=== PATIENT | female | born 2000 | race Caucasian/White ===

== ENCOUNTER 2020-08-05 10:55 | Inpatient (IN) | payer MEDICAID ==
[~2020-08-05] VITALS: Ht 165.1 cm; Wt 89.0 kg
[2020-08-05] MEDS ORDERED: methylPREDNISolone sod succ 125mg/2ml vial IV ONE (11:00)
[2020-08-05] MEDS ORDERED: normal saline 1000ML IV soln IVB ONE (11:00)
[2020-08-05] MEDS ORDERED: albuterol 2.5 MG/3 ML nebule CONTNEB PRN (11:00)
[2020-08-05] MEDS ORDERED: LORazepam 2 mg/ml vial IV ONE (11:00)
--- NOTE | 2020-08-05 11:06 | NUR ---
pt is alert oiented x4 at this time ,mother at bedside ,rt at bedside ,matt [address] superintendent completed the ekg.hr 158,spo2 91 reciveing neb tx.sbar to ena primary nurse.
[2020-08-05] MEDS ORDERED: methylPREDNISolone sod succ 125mg/2ml vial ONE (11:08)
--- NOTE | 2020-08-05 11:08 | NUR ---
Sammie ibrahim in [facility] - 08/05/20 at 1109 by PEYTON [id number]
[2020-08-05] MEDS ORDERED: magnesium 4gm in 100ml NS 100 ML IV ONE (11:10)
[2020-08-05 11:11] LABS: BASOPHILS # (AUTO) 0.1 X10'3 (0-0.2); BASOPHILS % (AUTO) 0.4 % (0-1); EOSINOPHILS # (AUTO) 0.1 X10'3 (0-0.9); EOSINOPHILS % (AUTO) 0.5 % (0-6); HEMOGLOBIN 12.5 g/dl (12.0-16.0); LYMPHOCYTES # (AUTO) 6.5 X10'3 (1.1-4.8); LYMPHOCYTES % (AUTO) 36.4 % (21-51); MEAN CORPUSCULAR HEMOGLOBIN 26.1 PG (27.0-31.0); MEAN CORPUSCULAR HGB CONC 31.3 g/dL (33.0-36.5); MEAN CORPUSCULAR VOLUME 83.4 FL (78-98); MEAN PLATELET VOLUME 8.4 FL (7.4-10.4); MONOCYTES # (AUTO) 1.6 X10'3 (0-0.9); MONOCYTES % (AUTO) 8.9 % (2-12); NEUTROPHILS # (AUTO) 9.5 X10'3 (1.8-7.7); NEUTROPHILS % (AUTO) 53.8 % (42-75); PLATELET COUNT 416 X10'3 (140-440); RED CELL DISTRIBUTION WIDTH 17.7 % (11.5-14.5); WHITE BLOOD COUNT 17.7 X10'3 (4.5-11.0)
[2020-08-05 11:23] LABS: ABG BASE EXCESS -10.2 mmol/L (-2.0-2.0); ABG HCO3 16.9 mmol/L (22.0-26.0); ABG OXYGEN SATURATION 91.1 % (94-97); ABG PCO2 (T) 41.9 mmHg (32.0-45.0); ABG PO2 (T) 71.7 mmHg (75.0-100.0); ALLEN'S TEST POSITIVE; FCOHb 0.3 % (0.0-3.9); FLOW 8 L/min; FMetHb 0.4 % (0.0-1.5); FO2Hb 90.5 % (94-97); TOTAL HEMOGLOBIN 12.7 G/dl (12.0-16.0)
[2020-08-05 11:26] LABS: ALANINE AMINOTRANSFERASE 35 U/L (12-78); ALBUMIN 3.7 G/DL (3.4-5.0); ALBUMIN/GLOBULIN RATIO 0.9 (1.1-1.5); ALKALINE PHOSPHATASE 39 IU/L (20-180); ANION GAP 18 (8-16); ASPARTATE AMINO TRANSFERASE 20 U/L (10-37); BILIRUBIN,TOTAL 0.2 MG/DL (0.1-1.0); BLOOD UREA NITROGEN 11 MG/DL (7-18); BUN/CREATININE RATIO 8.9 (6.6-38.0); CALCIUM 8.8 MG/DL (8.5-10.1); CHLORIDE 103 MMOL/L (99-107); CREATININE 1.23 MG/DL (0.40-0.90); GLUCOSE 246 MG/DL (70-104); POTASSIUM 3.9 MMOL/L (3.5-5.1); SODIUM 141 MMOL/L (135-145); TOTAL CARBON DIOXIDE 20.3 MMOL/L (24-32); TOTAL PROTEIN 7.6 G/DL (6.4-8.2); eGFR 56 ML/MIN
[2020-08-05] MEDS ORDERED: magnesium hydroxide 30ml (MOM) UD suspension PO PRN (13:15)
[2020-08-05] MEDS ORDERED: ondansetron/PF 4mg/2ml inj IV PRN (13:15)
[2020-08-05] MEDS ORDERED: morphine 2 MG/ML inj. syringe IV PRN ×2 (13:15)
[2020-08-05] MEDS ORDERED: mag hydrox/Alum hydrox/simeth 30ml oral suspension PO PRN (13:15)
[2020-08-05] MEDS ORDERED: acetaminophen 325mg tablet PO PRN ×2 (13:15)
--- NOTE | 2020-08-05 13:20 | NUR ---
pt states she is unable to urinate at this time, gave two cups of water.
[2020-08-05] MEDS ORDERED: NO HOME MEDS (13:39)
--- NOTE | 2020-08-05 13:45 | NUR ---
Patient in room PCU 3022. I have received report from Prince and had the opportunity to ask questions and assume patient care.
[2020-08-05] MEDS: methylPREDNISolone sod succ 125mg/2ml vial IV SCH ×2 (14:00→19:54)
--- NOTE | 2020-08-05 14:41 | NUR ---
called ER for report, no answer.
[2020-08-05] MEDS ORDERED: ipratropium/albuterol 3ml nebule NEB PRN (15:45)
--- NOTE | 2020-08-05 16:47 | NUR ---
PAGER ID: [phone] MESSAGE: Patient Adelina Barrios Rm 3025 has resting HR of 120-130's and goes to the 160's with activity. Please advise Arabella ext [phone]
[2020-08-05 18:00] VITALS: BP 113/42
--- NOTE | 2020-08-05 18:28 | NUR ---
Problems reprioritized. Patient report given, questions answered & plan of care reviewed with Becca GALAN.
--- NOTE | 2020-08-05 18:42 | NUR ---
Patient in room PCU 3022. I have received report from Arabella GALAN and had the opportunity to ask questions and assume patient care. Rounded together and introduced self and discussed plan of care for the evening. Patient sad she did not get dinner or cake this evening.
[2020-08-05] MEDS: ipratropium/albuterol 3ml nebule NEB SCH ×2 (19:20→23:11)
[2020-08-05 20:34] LABS: URINE HCG NEGATIVE (NEG)
[2020-08-05 20:35] LABS: CLARITY,URINE SLIGHTLY CLOUDY (Clear); COLOR,URINE YELLOW (Yellow); GLUCOSE, URINE NEGATIVE (Neg); KETONES,URINE NEGATIVE (Neg); LEUKOCYTE ESTERASE ,URINE NEGATIVE (Neg); NITRITES, URINE NEGATIVE (Neg); OCCULT BLOOD,URINE NEGATIVE (Neg); PROTEIN,URINE 100 mg/dl (Neg); UROBILINOGEN,URINE 0.2 E.U/dL (0.2-1.0)
[2020-08-05 21:02] LABS: UA COLLECTION TYPE CLN CATCH MIDSTREAM
[2020-08-05 21:04] LABS: BACTERIA,URINE FEW /HPF (Neg); RBC,URINE NONE SEEN /HPF (0-2); SQUAMOUS EPITHELIAL CELL,UR MODERATE /LPF (FEW); WBC,URINE 0-4 /HPF (0-4)
[2020-08-05 21:05] LABS: HYALINE CASTS 0-3 /LPF (NEGATIVE); MUCUS STRANDS MODERATE /LPF (Neg)
[2020-08-05 22:00] VITALS: BP 102/44
[2020-08-06] MEDS: methylPREDNISolone sod succ 125mg/2ml vial IV SCH ×2 (01:53→08:56)
[2020-08-06 02:00] VITALS: BP 123/50
[2020-08-06] MEDS: ipratropium/albuterol 3ml nebule NEB SCH ×2 (02:29→07:31)
--- NOTE | 2020-08-06 04:33 | NUR ---
Patient rested comfortably during the night either playing electronics or sleeping.
--- NOTE | 2020-08-06 06:15 | NUR ---
Patient in room PCU 3022. I have received report from Becca GALAN and had the opportunity to ask questions and assume patient care.
--- NOTE | 2020-08-06 06:32 | NUR ---
Problems reprioritized. Patient report given, questions answered & plan of care reviewed with Tiffany GALAN.
[2020-08-06 07:00] VITALS: BP 102/44
--- NOTE | 2020-08-06 08:01 | NUR ---
Pt refusing lab draws: notified. Dr. Lawrence notified via page. "RE: Adelina Barrios RM [id number]. Pt refusing any and all lab draws despite multiple tries/encouragement from multiple staff. -Tiffany #[id number]"
--- NOTE | 2020-08-06 08:01 | NUR ---
Patient in room PCU 3022. I have received report from ADAMA Allen and had the opportunity to ask questions and assume patient care.
[2020-08-06] MEDS ORDERED: PRED10TA23 PO (09:26)
--- NOTE | 2020-08-06 10:30 | NUR ---
Pt stable for discharge per MD orders. All discharge instructions reviewed with pt and her father; all questions answered. Follow up appointment will be made by the patient with her provider Becca Quan and Melchor uriostegui. New Rx e-scripted to [facility] on [facility] in [place]. PIV x2 discontinued, cannulas intact. cell assembly pinner discontinued. Belongings collected, including pt's [employer] switch console, controller, cell phone and two wall chargers and pt's purse, wallet and sunglasses, and sent with pt. Pt ambulated to the [facility] with this nurse and her father, where she left in a private vehicle headed home. pt walked and talked without any sign of respiratory distress or wheezing.
== END 2020-08-06 10:51 | disposition home or self-care (01) | DRG 133 ==
LOC: ER 10:55 → EDBD 10:55 → ED HOLD 13:12 → PCU 3S 14:57
PROVIDERS: ADMIT Internal Medicine; ATTEND Internal Medicine
DX: J96.00 Acute respiratory failure, unspecified whether with hypoxia or hypercapnia (principal); J45.901 Unspecified asthma with (acute) exacerbation
CPT/HCPCS: 36415; 36600; 71045; 80053; 81001; 81025; 82803; 83880; 85018; 85025; 87081; 93005; 94640; 94668; 94760; 96365; 96375; 99291; 99292; A7015; G0378; J2060; J2930; J3475; J7030